=== PATIENT | male | born 1940 | race Caucasian/White ===

== ENCOUNTER → 2016-04-16 | Outpatient (CLI) | payer OTHER ==
[~2016-04-16] MED LIST: ACET-1256 PO; ASCO500T16 PO; ASPI81TA28 PO; IMDSR/30 PO; LEUP1INJ15 IM; LISI-461 PO; LPR50X PO; MULT-506 PO; OMEG12006 PO; OMEP20TA PO; SIMV10TA2 PO; TAMS0.4C38 PO
[2016-04-16 13:20] VITALS: BP 117/54; PULSE 55; TEMP 36.6; O2SAT 94
--- NOTE | 2016-04-16 14:18 | Radiation Oncology Follow-Up ---
Radiation Oncology Follow-Up Date of Visit Apr 16, 2016. (Barbara Alvarez PA-C) Reason For Visit 6 month follow-up (Barbara Alvarez PA-C) Radiation Completion Date finished 03-15-2015 (Barbara Alvarez PA-C) Diagnosis (1) Prostate cancer Status: Acute Onset Date: 09/26/2014 Permanent Comment: STAGING: Prostate, adenocarcinoma, richard 4 + 3, cT3a, group III, PSA 46.0, high risk Hormonal suppression - plan for 18 to 28 months of Lupron (Dr. Burt) Status post completion of radiation therapy 03/15/2015 received 7920 cGy Last Edited By: Barbara Alvarez on Apr 16, 2016 14:15 (Barbara Alvarez PA-C) History of Present Illness Mr. Jc is a 75 year old male who presents with a history of a persistently elevated PSA since 2005 and several negative biopsies. The patient has been followed by Dr. Méndez in [place] who has performed several prostate biopsies which have been negative. The patient's most recent PSA was 46.14 on 07/20/2014. The patient requested a second opinion and was referred to Dr. Lugo and then to Dr. Edu Burt. Dr. Burt discussed the treatment options and recommended a TRUS guided biopsy which was completed on 09/26/2014. The TRUS measured the prostate gland at 30.7 mL. The pathology revealed 4 positive cores with prostate adenocarcinoma out of 14 total cores. Richard 4 + 3 disease was found in the left apex, left anterior and richard 3 + 3 disease was found in the right anterior. No perineural invasion was noted. The patient did have a CT abdomen/pelvis which was completed on 2014 which showed "1. A 3.3 heterogeneous area of enhancement within the left side of the prostate gland which likely corresponds to the patient's history of prostate malignancy. There is also asymmetric thickening of the left seminal vesicle which may represent tumor extension. There is no definite pelvic lymphadenopathy." The bone scan was completed on 10/19/2014 which showed no evidence of metastatic disease. The patient is now being referred to us for discussion of treatment options. His final decision was to be treated with hormone suppression and external beam radiation therapy (Barbara Alvarez PA-C) Interim History He feels his urinary status is stable. He gave an AUA score of 13.5. He does continue on Flomax. He completed expanded prostate cancer index composite for clinical practice and gave a score of 2 of 12 in urinary incontinence symptoms. He gave a score of 5 of 12 in urinary irritation symptoms. He gave a score of 8 of 12 in bowel symptoms. He gave a score of 12 of 12 and sexual symptoms. He gave a score of 6 of 12 in hormonal vitality symptoms. His total is 33 of 60. He does have hot flashes in association to the hormonal suppression. He continues on Lupron every 4 months. He denies ankle edema. There is some decreased strength of the legs. For the hot flashes he was previously offered Effexor. He declined this medication. Dr. 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 He states he can tolerate the hot flashes. He had his last Lupron injection on 04/06/2016. (Barbara Alvarez PA-C) Allergies Coded Allergies: Penicillins (Verified Allergy, Unknown, UNKNOWN, 10/19/14) Home Medications Scheduled Ascorbic Acid (Ascorbic Acid), 500 MG PO DAILY Aspirin (Aspirin Ec), 81 MG PO DAILY Isosorbide Mononitrate (Isosorbide Mononitrate ER), 30 MG PO DAILY Leuprolide Acetate (Lupron Depot), 1 APPLN IM [id number] Lisinopril (Lisinopril), 10 MG PO DAILY Metoprolol Tartrate (Metoprolol Tartrate), 25 MG PO DAILY Multivitamin (Multivitamin), 1 TAB PO DAILY [place]-3 Fatty Acids ([place] 3), 1 CAP PO BID Omeprazole (Omeprazole), 1 TAB PO DAILY Simvastatin (Zocor), 1 TAB PO HS Tamsulosin Hcl (Flomax), 1 CAP PO DAILY Scheduled PRN Acetaminophen (Tylenol), 1 TAB PO Q8 PRN for Mild Pain Review of Systems Gastrointestinal: Symptoms: WNL GI Comments: Stools are now formed;No fiber supplements;Using flax seed; Oral: Symptoms: No Problems Other Oral Symptoms: Trouble swallowing big pills, pieces of meat, dry food Respiratory: Symptoms: SOB With Exertion Other Respiratory: " I have heart problems " Urinary: Symptoms: Nocturia, Frequency Comments: nocturia 2 - 3, occ urgency and occ dribbling Skin: Symptoms: No Problems (Barbara Alvarez PA-C) Physical Exam Vital Signs Date Time Temp Pulse Resp B/P Pulse Ox O2 Delivery O2 Flow Rate FiO2 04/16/16 13:20 36.6 55 20 117/54 94 Pain: Side: Bilateral Pain Location: None Patient Pain Scale: 0 - 10 Initial Pain Intensity: 0.0 Fatigue: None General Appearance: + obese Eyes: normal inspection, EOMI ENT: normal ENT inspection, hearing grossly normal Neck: no adenopathy, thyroid normal Respiratory/Chest: lungs clear, no respiratory distress, no accessory muscle use Cardiovascular: regular rate, rhythm, no gallop, no murmur Abdomen: non tender, soft Extremities: no pedal edema Neurologic/Psychiatric: no motor/sensory deficits, alert, normal mood/affect Skin: warm/dry Lymphatic: no adenopathy (Barbara Alvarez PA-C) Laboratory Studies He had a PSA 07/15/2015 and the result was 0.23. He had a PSA 12/19/2015 and this was 0.13. (Barbara Alvarez PA-C) Assessment & Plan Plan: Patient is also seen today by Dr. Shaver. He has recommended a full 28 months of hormone suppression. It is concerning that his PSA is 0.13 with this length of time of hormone suppression. He continues on the tamsulosin for his urinary symptoms. He is scheduled for recheck PSA and to see Dr. Burt at the end of May. He is seeing him every 6 months. We asked him to return to our office in 1 year. In reviewing his records I do not see that he has had a DEXA scan. I will call and speak to him about having this performed. He could have this done in [place] which is closer to his home. He may call our office he has any question or concerns in the interim. (Barbara Alvarez PA-C) I agree with note created by Barbara Alvarez PA-C. I reviewed the patient's chart and information with her. I have examined and evaluated the patient. I reviewed relevant clinical information and answered the patient's and/or family' s questions. (Veeral. Shaver MD) Total Time In Follow-Up I spent 20 minutes speaking to the patient performing examination. I spent 15 minutes reviewing information in completing this note. (Barbara Alvarez PA-C) I spent 15 minutes examining and counseling the patient. (Veeral. Shaver MD) Copy To Paco Hall M.D.; Edu Burt MD, Urology
== END | disposition home or self-care (01) ==
LOC: C.ONC 13:01
PROVIDERS: ATTEND Radiology Radiation Oncology
DX: Z08 Encounter for follow-up examination after completed treatment for malignant neoplasm (principal); Z92.3 Personal history of irradiation; Z85.46 Personal history of malignant neoplasm of prostate

== ENCOUNTER → 2017-04-20 | Outpatient (CLI) | payer OTHER ==
[~2017-04-20] MED LIST changes: +ENOX120I SQ; +ENOX60IN SQ; +FURO-85 PO; +SIMV20TA2 PO
[2017-04-20 13:40] VITALS: BP 117/56; PULSE 72; TEMP 36.8; O2SAT 95
--- NOTE | 2017-04-20 16:15 | Radiation Oncology Follow-Up ---
Radiation Oncology Follow-Up Date of Visit Apr 20, 2017. Reason For Visit Annual follow-up Radiation Completion Date finished 03-15-2015 Diagnosis (1) Prostate cancer Status: Resolved Onset Date: 09/26/2014 Permanent Comment: STAGING: Prostate, adenocarcinoma, richard 4 + 3, cT3a, group III, PSA 46.0, high risk Hormonal suppression - plan for 18 to 28 months of Lupron (Dr. Burt) Status post completion of radiation therapy 03/15/2015 received 7920 cGy Last Edited By: Barbara Alvarez on Apr 16, 2016 14:15 History of Present Illness Mr. Jc presented with a history of a persistently elevated PSA since 2005 and several negative biopsies. The patient has been followed by Dr. Méndez in [place] who has performed several prostate biopsies which have been negative. The patient's most recent PSA was 46.14 on 07/20/2014. The patient requested a second opinion and was referred to Dr. Lugo and then to Dr. Edu Burt. Dr. Burt discussed the treatment options and recommended a TRUS guided biopsy which was completed on 09/26/2014. The TRUS measured the prostate gland at 30.7 mL. The pathology revealed 4 positive cores with prostate adenocarcinoma out of 14 total cores. Richard 4 + 3 disease was found in the left apex, left anterior and richard 3 + 3 disease was found in the right anterior. No perineural invasion was noted. The patient did have a CT abdomen/pelvis which was completed on 2014 which showed "1. A 3.3 heterogeneous area of enhancement within the left side of the prostate gland which likely corresponds to the patient's history of prostate malignancy. There is also asymmetric thickening of the left seminal vesicle which may represent tumor extension. There is no definite pelvic lymphadenopathy." The bone scan was completed on 10/19/2014 which showed no evidence of metastatic disease. The patient is now being referred to us for discussion of treatment options. His decision was to undergo hormone suppression with external beam radiation therapy. Interim History Over the past year his urinary status has been stable. He gave an AUA score of 15.5. The year prior he gave a score of 13. He completed and expanded prostate cancer index composite for clinical practice and gave a score of 2 of 12 and urinary incontinence symptoms. He gave a score of 5 of 12 and urinary irritation symptoms. He given a score 0 of 12 and bowel symptoms. He gives a score of 8 of 12 and sexual symptoms. He gave a score of 6 of 12 and hormonal vitality symptoms. His total was 21 of 60. He continues on Flomax to help his urinary status. He underwent spinal fusion surgery to the cervical spine. He unfortunately had complications of pneumonia and then DVT. He has steadily recuperated from the surgery and complications. He has had recheck PSAs in follow-up. He had a PSA June 19, 2016 that was 0.05. He had a PSA November that was less than 0.05. He had a PSA March 30, 2017 and that was less than 0.05. He has continued on Lupron injections through Dr. Burt's office. Last year we obtain a DEXA scan and found that he had moderate risk. He does take vitamin D daily. We discussed taking one calcium pill also. Allergies Coded Allergies: Penicillins (Verified Allergy, Unknown, UNKNOWN, 10/19/14) Home Medications Scheduled Ascorbic Acid (Ascorbic Acid), 500 MG PO DAILY Aspirin (Aspirin Ec), 81 MG PO DAILY Enoxaparin (Lovenox), 112 MG SQ Q12H Furosemide (Lasix), 1 TAB PO DAILY Isosorbide Mononitrate (Isosorbide Mononitrate ER), 30 MG PO DAILY Leuprolide Acetate (Lupron Depot), 1 APPLN IM [id number] Lisinopril (Lisinopril), 10 MG PO DAILY [place]-3 Fatty Acids ([place]mar 3), 1 CAP PO BID Omeprazole (Omeprazole), 1 TAB PO DAILY Simvastatin (Zocor), 1 TAB PO HS Tamsulosin Hcl (Flomax), 1 CAP PO DAILY Scheduled PRN Acetaminophen (Tylenol), 1 TAB PO Q8 PRN for Mild Pain Review of Systems Gastrointestinal: Symptoms: WNL GI Comments: Stools are now formed;No fiber supplements;Using flax seed; Oral: Symptoms: No Problems Other Oral Symptoms: Trouble swallowing big pills, pieces of meat, dry food Respiratory: Symptoms: SOB With Exertion Other Respiratory: " getting over pneumonia " Urinary: Symptoms: Frequency Comments: ncoturia times 1 - 2 , dribbling , occ urgency, Skin: Symptoms: No Problems Other Skin Symptoms: " rash all over body - no sure what caused it " Physical Exam Vital Signs Date Time Temp Pulse Resp B/P (MAP) Pulse Ox O2 Delivery O2 Flow Rate FiO2 04/20/17 13:40 36.8 72 20 117/56 95 Fatigue: None General Appearance: no apparent distress Eyes: normal inspection, EOMI ENT: normal ENT inspection, hearing grossly normal Respiratory/Chest: lungs clear, no respiratory distress, no accessory muscle use Cardiovascular: regular rate, rhythm, no gallop, no murmur Abdomen: non tender, soft, no organomegaly Extremities: no pedal edema Neurologic/Psychiatric: no motor/sensory deficits, alert, normal mood/affect Skin: warm/dry Pain Management Patient Reports Pain: No Side: Bilateral Pain Location: None Patient Preferred Pain Scale: 0 - 10 Initial Pain Intensity: 0.0 Pain Management Plan He denied pain therefore requires no pain management. Laboratory Laboratory Results: were reviewed Laboratory Comments: PSAs are reviewed in the interim history. Pathology Pathology Results: not applicable Imaging Imaging Studies: not applicable Assessment & Plan Plan: The patient is also seen today by Dr. Shaver. I reviewed with him his DEXA scan findings. I did recommend that he take calcium 600 mg daily. He is already taking vitamin D daily. He continues regular follow-up with his primary care physician and Dr. Burt. Dr. Shaver did make a recommendation of no further androgen deprivation. He did feel his hot flashes had improved but he does have increased fatigue and lack of energy. We asked him to return to our office in 1 year. He may call if he has any questions or concerns in the interim. Assessment & Plan (Attending) I agree with note created by Barbara Alvarez PA-C. I reviewed the patient's chart and information with her. I have examined and evaluated the patient. I reviewed relevant clinical information and answered the patient's and/or family' s questions. [employer]ENT Total Time In Follow-Up I spent 20 minutes speaking to the patient in performing examination. I spent 15 minutes reviewing information and completing this note. [place] Total Time (Attending) In Follow-Up I spent 15 minutes examining and counseling the patient. [employer] Copy To Ishan Paige M.D.; Edu Burt MD, Urology
== END | disposition home or self-care (01) ==
LOC: C.ONC 13:27
PROVIDERS: ATTEND Physician Assistant Medical
DX: Z08 Encounter for follow-up examination after completed treatment for malignant neoplasm (principal); Z92.3 Personal history of irradiation; Z85.46 Personal history of malignant neoplasm of prostate